=== PATIENT | male | born 1985 | race Caucasian/White ===

== ENCOUNTER → 2019-01-11 08:42 | Outpatient (CLI) | payer OTHER, SELFPAY ==
--- NOTE | 2019-01-11 08:58 | RAD_ITS ---
STUDY: X-RAY - ESOPHAGUS (BARIUM SWALLOW) WITH FLUOROSCOPY REASON FOR EXAM: Male, 33 years old. Uvular swelling. TECHNIQUE: 14 view(s) of the esophagus were obtained following swallowing of barium. FLUOROSCOPY TIME (if supplied): (0:21) minutes/seconds COMPARISON: None. FINDINGS: There is no demonstrated esophageal foreign body. There is no demonstrated stricture or mucosal abnormality. There is a small hiatal hernia of the fundus of the stomach. No evidence of gastroesophageal reflux. The patient ingested a 12 mm tablet of barium without any difficulty. Normal visualized aortic arch and descending thoracic aorta. Normal visualized pulmonary parenchyma. Normal visualized osseous structures of the thorax. RAD/Esophagus Only IMPRESSION: Small sliding hiatal hernia without gastroesophageal reflux. Electronically Signed: Luigi Lee, at 9:30 EDT , Service support ,
[2019-01-14 06:07] LABS: Immunoglobulin E 35 IU/mL (6-495)
[2019-01-14 16:15] LABS: C1 EST Inhibitor, Functional 81 (.); Deamidated Gliadin IgA 5 units (0-19); Deamidated Gliadin IgG 13 units (0-19)
== END ==
PROVIDERS: Referring Provider Otolaryngology Otolaryngology/Facial Plastic Surgery; Visit Provider Otolaryngology Otolaryngology/Facial Plastic Surgery
DX: T78.3XXA Angioneurotic edema, initial encounter (principal); R22.0 Localized swelling, mass and lump, head; J02.9 Acute pharyngitis, unspecified; K21.9 Gastro-esophageal reflux disease without esophagitis
CPT/HCPCS: 36415; 74220; 82785; 83516; 86160; 86161

== ENCOUNTER → 2019-02-17 16:34 | Outpatient (CLI) | payer OTHER, SELFPAY ==
[2019-02-17 17:50] LABS: CRP < 2.90 mg/L (0.0-3.0)
[2019-02-19 16:08] LABS: Endomysial Antibody IgA Negative (Negative)
[2019-02-22 13:20] LABS: Immunoglobulin A 132 mg/dL (90-386); t-Transglutaminase IgA <2 U/mL (0-3)
== END ==
PROVIDERS: Referring Provider Internal Medicine Gastroenterology; Visit Provider Internal Medicine Gastroenterology
DX: R14.0 Abdominal distension (gaseous) (principal)
CPT/HCPCS: 36415; 82784; 83516; 86140; 86255